=== PATIENT | female | born 1985 | race Caucasian/White ===

== ENCOUNTER 2019-04-25 10:52 | Emergency (ER) | payer OTHER ==
[2019-04-25 11:03] VITALS: BP 115/76; PULSE 79; TEMP 98.3; BMI 23.3
[2019-04-25] MEDS ORDERED: IBUPROFEN 600 MG TABLET (FP) PO ONE ×2 (11:57→12:05)
--- NOTE | 2019-04-25 12:03 | PDOC ---
History of Present Illness - General Chief Complaint: Edema Stated Complaint: INFECTED WOUND Time Seen by Provider: 04/25/19 11:04 History Source: Patient Exam Limitations: No Limitations - History of Present Illness Initial Comments: 04/25/19 11:57 34-year-old female Malay-speaking, [id number], denies past medical history presents complaining of pain to her right middle finger x3 days. Patient reports 3 days ago she was cleaning a wooden chair in her home when she felt something enter the cuticle of her right middle finger. Since that time she has been experiencing increasing pain and swelling to the area. She has been cleaning the area with warm water and soap. She expressed some pus from the area yesterday and noticed a tiny piece of wood protruding from the skin which she removed. She denies fever, chills, numbness, tingling any other complaints or injuries. Her last tetanus was April 2018. 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 Requesting note for work. Has not taken any pain meds today. ROS: GENERAL/CONSTITUTIONAL: No fever, chills, weakness, dizziness HEAD, EYES, EARS, NOSE AND THROAT: No changes in vision, No ear pain or discharge, No sore throat CARDIOVASCULAR: No chest pain RESPIRATORY: No shortness of breath or cough GASTROINTESTINAL: No pain, nausea, vomiting, diarrhea or constipation GENITOURINARY: No dysuria MUSCULOSKELETAL: Third finger pain and swelling SKIN: No rash NEUROLOGIC: No headache, vertigo, loss of consciousness, or loss of sensation PE: GENERAL: well-appearing, NAD HEAD: NCAT EYES: Pupils equal, round and reactive to light, sclera anicteric, conjunctiva clear ENT: pharynx: no erythema, no exudate, uvula midline NECK: supple CHEST: nontender RESP: clear, no w/r/r CARDIO: rrr, no m/g/r ABD: +BS, soft, nontender, non distended BACK: no midline spinal ttp, no CVAT EXTREMITIES: Normal range of motion, no edema NEUROLOGICAL: Normal speech, normal gait SKIN: Erythema, swelling, warmth and tenderness to palpation noted to cuticle of right third finger, no pus pocket noted, no streaking Is this a multiple visit Asthma Patient?: No Past History - Past Medical History Allergies/Adverse Reactions: Allergies Allergy/AdvReac Type Severity Reaction Status Date / Time No Known Allergies Allergy Verified 04/25/19 11:03 Home Medications: Ambulatory Orders Cephalexin [Keflex] 500 mg PO Q6H #28 capsule 04/25/19 COPD: No - Psycho Social/Smoking Cessation Hx Smoking History: Never smoked Hx Alcohol Use: No Drug/Substance Use Hx: No *Physical Exam - Vital Signs Last Vital Signs Temp Pulse Resp BP Pulse Ox 98.3 F 79 16 115/76 98 04/25/19 11:00 04/25/19 11:00 04/25/19 11:00 04/25/19 11:00 04/25/19 11:00 ED Treatment Course - RADIOLOGY Radiology Studies Ordered: Category Date Time Status FINGER(S) RIGHT [RAD] Stat Radiology 04/25/19 11:55 Ordered Medical Decision Making - Medical Decision Making 04/25/19 12:03 34-year-old female with early paronychia to right third middle finger Tetanus up-to-date Ibuprofen 600 mg x 1 dose Right third finger x-ray Antibiotics 04/25/19 13:19 Third finger x-ray reviewed, no foreign body noted Note for provided Patient understands she is to take Keflex 500 mg 1 tablet every 6 hours for 7 days Return precautions discussed Discharge - Discharge Information Problems reviewed: Yes Clinical Impression/Diagnosis: Paronychia Condition: Stable Disposition: HOME - Admission No - Additional Discharge Information Prescriptions: Cephalexin [Keflex] 500 mg PO Q6H #28 capsule - Follow up/Referral Referrals: ON STAFF,NOT [Primary Care Provider] - - Patient Discharge Instructions Additional Instructions: Take cephalexin 500 mg 1 tablet every 6 hours for 7 days If you develop worsening pain, redness, fever, chills return to ED immediately Follow-up with your primary care doctor within 1 week - Post Discharge Activity Work/Back to School Note: Back to Work
== END 2019-04-25 13:25 | disposition home or self-care (01) ==
LOC: JERFT 10:52
DX: L03.011 Cellulitis of right finger (principal)
CPT/HCPCS: 73140-TC-RT-FY; 99282-25